=== PATIENT | male | born 1975 | race Caucasian/White ===

== ENCOUNTER 2019-06-10 06:01 | Inpatient (IN) | payer OTHER ==
[~2019-06-10] VITALS: Ht 182.9 cm; Wt 187.9 kg
[2019-06-10 06:11] VITALS: Ht 182.9 cm; Wt 187.9 kg
--- NOTE | 2019-06-10 06:22 | NUR ---
PT CAME TO ED CO STOMACH ACHE. PT STS IT JUST FEELS LIKE A "STOMACH ACHE". PT STS HE BEIEVES THAT THIS IS FROM CARRY OUT. PT STS HE TOOK OTC MEDICATION THAT HELPED HIM. PT DENIES N/V/D AT THIS TIME. TENDERNESS UPON PALPATION IN ALL FOUR QUADRANTS. NO S/S OF DISTRESS. RESP E/U. WILL CONTINUE TO MONITOR.
--- NOTE | 2019-06-10 06:47 | NUR ---
PT MEDICATED PER ORDER. PT VERBALIZED UNDERSTANDING OF MEDICATION TEACHING. SEE EMAR FOR DETAILS.
[2019-06-10 07:13] LABS: UA SPECIFIC GRAVITY 1.015 (1.005-1.035); microscopic required? YES; urine erythrocyte TRACE (NEGATIVE)
--- NOTE | 2019-06-10 07:18 | NUR ---
OPTOMETRIC AIDE AT BEDSIDE FOR ADDITIONAL BLOOD COLLECTION.
--- NOTE | 2019-06-10 07:19 | NUR ---
PT TO XRAY.
[2019-06-10 07:27] LABS: AMPHETAMINE QUAL UR NONE DETECTED (See below)
[2019-06-10 07:31] LABS: PLATELET COUNT 289 x10^3mcL (130-400)
[2019-06-10 07:32] LABS: RED CELL DISTRIBUTION WIDTH 15.4 % (11.5-14.5)
[2019-06-10 07:43] LABS: CALCIUM 8.6 mg/dL (8.5-10.1); CARBON DIOXIDE 26.9 mmol/L (21-32); CHLORIDE SERUM 95 mmol/L (98-107); CREATININE SERUM 0.7 mg/dL (0.7-1.3); GFR1 > 60 mL/min; GLUCOSE SERUM 149 mg/dL (74-106); POTASSIUM SERUM 3.6 mmol/L (3.5-5.1); SODIUM SERUM 132 mmol/L (136-145)
[2019-06-10 07:55] LABS: ALKALINE PHOSPHATASE 83 U/L (46-116); ALT/SGPT 21 U/L (16-63); AST/SGOT 14 U/L (15-37); BILIRUBIN TOTAL 0.31 mg/dL (0.20-1.00); CHOLESTEROL 143 mg/dL (<200); HDL CHOLESTEROL 43 mg/dL (40-60); LIPASE 192 IU/L (73-393); T4(THYROXINE) 12.1 ug/dL (4.7-13.3); TOTAL PROTEIN, SERUM 7.6 g/dL (6.4-8.2)
[2019-06-10 07:56] LABS: BAND NEUTROPHIL 1 % (0-10); BASOPHIL 0 % (0-2); MONOCYTE 5 % (0-7); SEGMENTED NEUTROPHILS 94 % (37-75)
[2019-06-10 07:58] LABS: ALBUMIN 2.9 g/dL (3.4-5.0); PLATELET MORPHOLOGY PLATELETS NORMAL; rbc morphology (normal/abnorm) ABNORMAL (NORMAL)
--- NOTE | 2019-06-10 08:18 | NUR ---
PT TO CT SCAN VIA [facility].
[2019-06-10] MEDS ORDERED: GEODON20 MG PO (09:13)
--- NOTE | 2019-06-10 09:20 | NUR ---
PT TO US.
--- NOTE | 2019-06-10 09:34 | NUR ---
PT BACK FROM US.,
--- NOTE | 2019-06-10 10:53 | NUR ---
REPORT GIVEN TO JODI VASQUEZ, ANEL DODSON , [facility].PT STABLE FOR TRANSFER.
--- NOTE | 2019-06-10 11:20 | NUR ---
RECEIVED PT FROM ER, AWAKE ALERT AND ORIENTED X 4, VERBALLY RESPONSIVE, CALM. ADMITTING DX OF CHOLELYTHIASIS, W/ CC OF ABDOMINAL PAIN. PT W/ HO ASTHMA, HTN, DM AND ASTHMA, AND PSYCH HX. NO C/O PAIN / DISCOMFORT UPON RECEIVING PT. NO SOB, ON ROOM AIR. NON TELE. IV 20G ON R AC SALINE LOCKED. PT WAS NPO BUT DIET CHANGED TO FULL LIQUIDS PER MD ORDER. SERGEI SUPERVISING EDITOR NEWS REEL AWARE. BED POSITIONED LOW, CALL LIGHT WITHIN REACH.
[2019-06-10] MEDS ORDERED: METFORMIN HCL500 M4 PO (11:38)
[2019-06-10] MEDS ORDERED: LOTENSIN20 MG PO ×2 (11:39)
[2019-06-10] MEDS ORDERED: SIMVASTATIN5 M2 PO (11:40)
[2019-06-10] MEDS ORDERED: NOR10 PO (11:42)
[2019-06-10 11:57] VITALS: BP 146/81
[2019-06-10 15:54] VITALS: BP 138/83
--- NOTE | 2019-06-10 18:36 | NUR ---
PT DENIES ANY ABDOMINAL PAIN/ DISCOMFORT AT THIS TIME, NO C/O DIARRHEA UP TO THIS TIME. ACHS AT 1630 WAS 94, ASYMPTOMATIC.
--- NOTE | 2019-06-10 20:00 | NUR ---
PT A/A/O X4. DENIES DIZZINESS AND HEADACHE. BREATH SOUNDS CLEAR. BREATHING EVEN AND UNLABORED ON ROOM AIR. DENIES CHEST PAIN AND PRESSURE. BOWEL SOUNDS ACTIVE. NO C/O N/V AND ABD PAIN THUS FAR. IV INTACT ON THE RAC. MADE PT COMFORTABLE. PLACED CALL LIGHT WITH IN REACH. WILL CONTINUE TO MONITOR.
[2019-06-10 22:32] VITALS: BP 118/76
--- NOTE | 2019-06-11 00:54 | NUR ---
PT RESTING WITH EYES CLOSED. NO DISTRESS AND DISCOMFORT NOTED. WILL CONTINUE TO MONITOR.
[2019-06-11 06:12] VITALS: BP 127/78
--- NOTE | 2019-06-11 06:27 | NUR ---
PT QUIET AND RESTING. DENIES ABDOMINAL PAIN AND DIARRHEA THUS FAR. MADE PT COMFORTABLE. WILL ENDORSE TO THE AM NURSE ACCORDINGLY.
[2019-06-11 06:37] LABS: BASOPHIL % 0.3 % (0-2); PLATELET COUNT 331 x10^3mcL (130-400)
[2019-06-11 07:00] LABS: RED CELL DISTRIBUTION WIDTH 15.5 % (11.5-14.5)
[2019-06-11 07:22] LABS: CARBON DIOXIDE 27.4 mmol/L (21-32); CHLORIDE SERUM 98 mmol/L (98-107); CREATININE SERUM 0.9 mg/dL (0.7-1.3); GFR1 > 60 mL/min; GLUCOSE SERUM 109 mg/dL (74-106); POTASSIUM SERUM 4.1 mmol/L (3.5-5.1); SODIUM SERUM 134 mmol/L (136-145)
--- NOTE | 2019-06-11 07:30 | NUR ---
OOB TO CHAIR, AAOX4, NO SOB AT RM AIR. DENIES ABD PAIN, OR DIARRHEA. SL TO RAC INTACT. SAFETY AND FALL PRECAUTION REINFORCED. WILL CONTINUE TO MONITOR STATUS.
[2019-06-11 09:04] VITALS: BP 140/91
[2019-06-11 12:42] VITALS: BP 140/91
--- NOTE | 2019-06-11 13:15 | NUR ---
PT DC TO HOME PER DC ORDER; LEFT THE UNIT IN STABLE CONDITION; NO COMPLAINTS VOICED; DENEIS DIARRHEA OR ABD PAIN. ACCOMPANIED BY CELL MANAGER OUT OF THE UNIT. SL ON THE RAC TAKEN OUT AND THE CATH IS INTACT. VERBAL AND WRITTEN DC INSTRUCTIONS GIVEN WITH VERBAL UNDERSTANDING. COPIES PROVIDED.
== END 2019-06-11 13:30 | disposition home or self-care (01) | DRG 249 ==
LOC: ED 06:01 → MU 09:24
PROVIDERS: Emergency Medicine; ADMIT Family Medicine
DX: K52.9 Noninfective gastroenteritis and colitis, unspecified (principal); K80.20 Calculus of gallbladder without cholecystitis without obstruction; E11.9 Type 2 diabetes mellitus without complications; E66.9 Obesity, unspecified; Z79.84 Long term (current) use of oral hypoglycemic drugs
CPT/HCPCS: 82962; G0378; J0500; J1885; J2543; J7030; J7040; Q9967